=== PATIENT | female | born 1985 | race African-American/Black ===

== ENCOUNTER 2017-03-15 18:06 | Emergency (ER) | payer MEDICARE, MEDICAID ==
[~2017-03-15] VITALS: Ht 162.6 cm; Wt 65.0 kg
[2017-03-15 21:25] LABS: CLARITY URINE CLOUDY (CLEAR); COLOR URINE YELLOW (YELLOW); GLUCOSE URINE NEGATIVE (NEGATIVE); KETONES URINE NEGATIVE (NEGATIVE); LEUKOCYTE ESTERASE URINE 1+ (NEGATIVE); NITRITE URINE NEGATIVE (NEGATIVE); OCCULT BLOOD URINE NEGATIVE (NEGATIVE); PH URINE 6.5 (4.5-8.0); PROTEIN URINE TRACE (NEGATIVE); SPECIFIC GRAVITY URINE 1.028 (1.005-1.030)
[2017-03-15 21:30] LABS: UCG SCREEN NEGATIVE
[2017-03-15 21:55] VITALS: BP 119/69
== END 2017-03-15 22:25 | disposition home or self-care (01) ==
LOC: ER 18:06
DX: N39.0 Urinary tract infection, site not specified (principal); F17.200 Nicotine dependence, unspecified, uncomplicated
CPT/HCPCS: 81001; 81025; 99283; 99284

== ENCOUNTER 2017-09-17 16:44 | Emergency (ER) | payer MEDICARE, MEDICAID ==
[~2017-09-17] VITALS: Ht 154.9 cm; Wt 49.0 kg
[2017-09-17 17:46] VITALS: BP 122/74
[2017-09-17] MEDS ORDERED: CEFTRIAXONE SODIUM 250 MG/VIAL IM ONE (21:45)
[2017-09-17] MEDS ORDERED: AZITHROMYCIN 500 MG TABLET PO ONE (21:45)
[2017-09-18 10:28] LABS: HEPATITIS A AB IGM NEGATIVE (NEGATIVE)
[2017-09-18 10:39] LABS: HEPATITIS B CORE AB IGM REACTIVE; HEPATITIS B SURFACE ANTIGEN REACTIVE PEND CONFIR
[2017-09-19 14:20] LABS: HBSAG CONFIRMATION Positive (.); HBSAG SCREEN Confirm. indicated (Negative)
== END 2017-09-17 23:41 | disposition home or self-care (01) ==
LOC: ER 16:44
DX: A54.9 Gonococcal infection, unspecified (principal); N72 Inflammatory disease of cervix uteri; F17.200 Nicotine dependence, unspecified, uncomplicated; N89.8 Other specified noninflammatory disorders of vagina; Z11.3 Encounter for screening for infections with a predominantly sexual mode of transmission
CPT/HCPCS: 36415; 86592; 87186; 96372; 99284; J0696; 86705; 86709; 86803; 87340

== ENCOUNTER 2017-09-18 14:49 | Emergency (ER) | payer MEDICARE, MEDICAID ==
[~2017-09-18] VITALS: Ht 157.5 cm; Wt 49.0 kg
[2017-09-18 14:54] VITALS: BP 111/58
== END 2017-09-18 19:30 | disposition left against medical advice (07) ==
LOC: ER 16:00
DX: Z53.21 Procedure and treatment not carried out due to patient leaving prior to being seen by health care provider (principal)

== ENCOUNTER 2017-09-19 16:40 | Emergency (ER) | payer MEDICARE, MEDICAID ==
[~2017-09-19] VITALS: Ht 154.9 cm; Wt 50.0 kg
[2017-09-19 19:54] VITALS: BP 104/58
== END 2017-09-19 19:55 | disposition home or self-care (01) ==
LOC: ER 18:53
DX: B19.10 Unspecified viral hepatitis B without hepatic coma (principal); J45.909 Unspecified asthma, uncomplicated; F17.200 Nicotine dependence, unspecified, uncomplicated
CPT/HCPCS: 99281

== ENCOUNTER 2017-09-28 06:03 | Emergency (ER) | payer MEDICARE, MEDICAID ==
[~2017-09-28] VITALS: Ht 165.1 cm; Wt 59.0 kg
[2017-09-28] MEDS ORDERED: KETOROLAC 30MG/ML VIAL IV STA (07:05)
[2017-09-28] MEDS ORDERED: SODIUM CHLORIDE 0.9% 1,000 ML IV ONE (07:05)
[2017-09-28 07:42] LABS: HEMATOCRIT. 27.5 % (36.0-48.0); HEMOGLOBIN. 8.1 g/dL (12.0-16.0); MEAN CORPUSCULAR HEMOGLOBIN 19.3 pg (28.0-32.0); MEAN CORPUSCULAR VOLUME 65.2 fL (81.0-99.0); MEAN PLATELET VOLUME 9.1 fl (7.4-10.4); PLATELET 345 x1000/uL (130-400); RED BLOOD CELL COUNT 4.22 mill/uL (4.2-5.4); RED CELL DISTRIBUTION WIDTH 19.8 % (11.6-14.6)
[2017-09-28 07:45] LABS: CLARITY URINE CLOUDY (CLEAR); COLOR URINE YELLOW (YELLOW); KETONES URINE TRACE (NEGATIVE); LEUKOCYTE ESTERASE URINE 1+ (NEGATIVE); NITRITE URINE NEGATIVE (NEGATIVE); OCCULT BLOOD URINE NEGATIVE (NEGATIVE); PH URINE 5.5 (4.5-8.0); PROTEIN URINE TRACE (NEGATIVE); SPECIFIC GRAVITY URINE 1.024 (1.005-1.030)
[2017-09-28 07:46] LABS: CHLORIDE 105 mEq/L (98-107)
[2017-09-28 07:51] LABS: ETHANOL BLOOD < 10 mg/dL
[2017-09-28 07:54] LABS: CREATINE KINASE 74 IU/L (26-192)
[2017-09-28 07:59] LABS: *AMPHETAMINES SCREEN URINE NEGATIVE (NEGATIVE); *BARBITURATES SCREEN URINE NEGATIVE (NEGATIVE); *BENZODIAZEPINES SCREEN URINE NEGATIVE (NEGATIVE); CANNABINOID URINE SCREEN NEGATIVE (NEGATIVE); METHADONE URINE SCREEN NEGATIVE (NEGATIVE); OPIATES URINE SCREEN NEGATIVE (NEGATIVE); PHENCYCLIDINE URINE SCREEN NEGATIVE (NEGATIVE)
[2017-09-28 08:01] LABS: HCG SCREEN NEGATIVE
[2017-09-28 08:02] LABS: *COCAINE SCREEN URINE PRESUMTIVE POSITIVE (NEGATIVE)
[2017-09-28 08:19] LABS: PLATELET ESTIMATE NORMAL
[2017-09-28 11:48] VITALS: BP 122/59
== END 2017-09-28 12:15 | disposition home or self-care (01) ==
LOC: ER 06:07
DX: R53.1 Weakness (principal); R05 Cough; F14.10 Cocaine abuse, uncomplicated; F17.200 Nicotine dependence, unspecified, uncomplicated; R03.0 Elevated blood-pressure reading, without diagnosis of hypertension
CPT/HCPCS: 36415; 71045; 76705; 80053; 80305; 81003; 82550; 83690; 84703; 85025; 96361; 96374; 99285; G0482; J1885; J7030

== ENCOUNTER 2017-12-01 05:20 | Emergency (ER) | payer MEDICARE, MEDICAID ==
[~2017-12-01] VITALS: Ht 170.2 cm; Wt 63.0 kg
[2017-12-01 08:22] VITALS: BP 106/65
== END 2017-12-01 10:15 | disposition home or self-care (01) ==
LOC: ER 05:20
DX: N76.0 Acute vaginitis (principal); B96.89 Other specified bacterial agents as the cause of diseases classified elsewhere; Z86.19 Personal history of other infectious and parasitic diseases
CPT/HCPCS: 87210; 99283

== ENCOUNTER 2018-10-02 08:37 | Emergency (ER) | payer MEDICARE, MEDICAID ==
[~2018-10-02] VITALS: Ht 160 cm; Wt 50.0 kg
[2018-10-02] MEDS ORDERED: ONDANSETRON HCL 4MG/2ML INJ IV STA (12:37)
[2018-10-02] MEDS ORDERED: MORPHINE SULFATE 4 MG/ML CPJ (NOT FOR IM USE) IV STA (12:37)
[2018-10-02 12:54] LABS: BASOPHILS % 2.6 % (0.0-2.0); EOSINOPHILS % 0.3 % (0.0-5.0); HEMATOCRIT. 30.7 % (36.0-48.0); HEMOGLOBIN. 8.6 g/dL (12.0-16.0); MEAN CORPUSCULAR HEMOGLOBIN 18.8 pg (28.0-32.0); MEAN CORPUSCULAR VOLUME 67.3 fL (81.0-99.0); MEAN PLATELET VOLUME 7.6 fl (7.4-10.4); NEUTROPHILS % 74.1 % (40.0-76.0); PLATELET 590 x1000/uL (130-400); RED BLOOD CELL COUNT 4.56 mill/uL (4.2-5.4); RED CELL DISTRIBUTION WIDTH 20.7 % (11.6-14.6)
[2018-10-02 12:56] LABS: CHLORIDE 104 mEq/L (98-107)
[2018-10-02 12:58] LABS: INR 1.1; PROTHROMBIN TIME 11.3 sec (9.1-11.1)
[2018-10-02 13:01] LABS: ETHANOL BLOOD < 10 mg/dL
[2018-10-02 13:32] LABS: PLATELET ESTIMATE INCREASED
[2018-10-02 14:39] LABS: CLARITY URINE CLOUDY (CLEAR); COLOR URINE YELLOW (YELLOW); KETONES URINE 1+ (NEGATIVE); LEUKOCYTE ESTERASE URINE NEGATIVE (NEGATIVE); NITRITE URINE POSITIVE (NEGATIVE); OCCULT BLOOD URINE NEGATIVE (NEGATIVE); PROTEIN URINE TRACE (NEGATIVE); SPECIFIC GRAVITY URINE 1.027 (1.005-1.030)
[2018-10-02 14:48] LABS: *BARBITURATES SCREEN URINE NEGATIVE (NEGATIVE)
[2018-10-02 14:49] LABS: *AMPHETAMINES SCREEN URINE NEGATIVE (NEGATIVE); *BENZODIAZEPINES SCREEN URINE NEGATIVE (NEGATIVE); CANNABINOID URINE SCREEN PRESUMTIVE POSITIVE (NEGATIVE); METHADONE URINE SCREEN NEGATIVE (NEGATIVE); PHENCYCLIDINE URINE SCREEN NEGATIVE (NEGATIVE)
[2018-10-02 14:51] LABS: *COCAINE SCREEN URINE PRESUMTIVE POSITIVE (NEGATIVE); OPIATES URINE SCREEN PRESUMTIVE POSITIVE (NEGATIVE)
[2018-10-02] MEDS ORDERED: IOHEXOL-300 100 ML BOTTLE ONE (17:10)
[2018-10-02 18:17] VITALS: BP 112/54
[2018-10-05 06:11] LABS: CHLAMYDIA TRACHOMATIS NAA Negative (Negative); NEISSERIA GONORRHOEAE NAA Positive (Negative)
== END 2018-10-02 18:18 | disposition home or self-care (01) ==
LOC: ER 08:44
DX: N83.201 Unspecified ovarian cyst, right side (principal); A54.9 Gonococcal infection, unspecified
CPT/HCPCS: 36415; 71045; 74177; 76830; 76856; 80053; 80305; 80320; 81003; 81025; 83690; 85025; 85610; 87210; 87491; 87591; 96374; 96375; 99284; J2270; J2405; Q9967; G0480

== ENCOUNTER 2018-10-21 16:30 | Emergency (ER) | payer MEDICARE, MEDICAID ==
[~2018-10-21] VITALS: Ht 154.9 cm; Wt 45.6 kg
[2018-10-21 16:42] VITALS: BP 123/47
== END 2018-10-21 19:20 | disposition left against medical advice (07) ==
LOC: ER 16:30
DX: R10.9 Unspecified abdominal pain (principal); Z53.21 Procedure and treatment not carried out due to patient leaving prior to being seen by health care provider

== ENCOUNTER 2018-10-21 20:56 | Emergency (ER) | payer MEDICARE, MEDICAID ==
[~2018-10-21] VITALS: Ht 157.5 cm; Wt 46.0 kg
[2018-10-22] MEDS ORDERED: KETOROLAC 60MG/2ML VIAL IM ONE (03:00)
[2018-10-22 05:09] LABS: CLARITY URINE CLOUDY (CLEAR); COLOR URINE YELLOW (YELLOW); KETONES URINE TRACE (NEGATIVE); LEUKOCYTE ESTERASE URINE 1+ (NEGATIVE); NITRITE URINE NEGATIVE (NEGATIVE); OCCULT BLOOD URINE 3+ (NEGATIVE); PH URINE 5.5 (4.5-8.0); PROTEIN URINE TRACE (NEGATIVE); SPECIFIC GRAVITY URINE 1.039 (1.005-1.030)
[2018-10-22 07:05] VITALS: BP 112/66
== END 2018-10-22 07:06 | disposition home or self-care (01) ==
LOC: ER 20:56
DX: N39.0 Urinary tract infection, site not specified (principal); N83.202 Unspecified ovarian cyst, left side
CPT/HCPCS: 81003; 81025; 87077; 87086; 87186; 96372; 99283; J1885

== ENCOUNTER 2019-01-15 16:00 | Emergency (ER) | payer MEDICARE, MEDICAID ==
[~2019-01-15] VITALS: Ht 165.1 cm; Wt 44.9 kg
[2019-01-15 19:44] VITALS: BP 112/73
== END 2019-01-15 19:46 | disposition home or self-care (01) ==
LOC: ER 18:24
DX: J02.9 Acute pharyngitis, unspecified (principal); T19.2XXA Foreign body in vulva and vagina, initial encounter; X58.XXXA Exposure to other specified factors, initial encounter; Y93.89 Activity, other specified; Y92.89 Other specified places as the place of occurrence of the external cause
CPT/HCPCS: 99283

== ENCOUNTER 2019-02-23 19:34 | Emergency (ER) | payer MEDICARE, MEDICAID ==
[~2019-02-23] VITALS: Ht 157.5 cm; Wt 48.0 kg
[2019-02-23] MEDS ORDERED: IBUPROFEN 600MG TABLET PO ONE (22:45)
[2019-02-24 00:21] VITALS: BP 112/67
== END 2019-02-24 00:29 | disposition home or self-care (01) ==
LOC: ER 20:00
DX: S90.02XA Contusion of left ankle, initial encounter (principal); M79.672 Pain in left foot; J45.909 Unspecified asthma, uncomplicated; F17.200 Nicotine dependence, unspecified, uncomplicated; X58.XXXA Exposure to other specified factors, initial encounter; Y93.89 Activity, other specified; Y92.89 Other specified places as the place of occurrence of the external cause; Y99.8 Other external cause status
CPT/HCPCS: 73610; 73630; 81025; 99283

== ENCOUNTER 2021-09-25 13:49 | Emergency (ER) | payer MEDICARE, MEDICAID ==
[~2021-09-25] VITALS: Ht 165.1 cm; Wt 59.0 kg
[2021-09-25 13:53] VITALS: BP 124/76
[2021-09-25] MEDS ORDERED: IBUPROFEN 400MG TABLET PO ONE (14:15)
[2021-09-25] MEDS ORDERED: IBUP-2028 MT (15:05)
== END 2021-09-25 16:07 | disposition home or self-care (01) ==
LOC: ER 14:03
DX: S93.491A Sprain of other ligament of right ankle, initial encounter (principal); V78.4XXA Person boarding or alighting from bus injured in noncollision transport accident, initial encounter; Y93.01 Activity, walking, marching and hiking; Y92.488 Other paved roadways as the place of occurrence of the external cause; J45.909 Unspecified asthma, uncomplicated
CPT/HCPCS: 73610; 99283

== ENCOUNTER 2021-12-22 14:43 | Emergency (ER) | payer MEDICARE, MEDICAID ==
[~2021-12-22] VITALS: Ht 157.5 cm; Wt 50.0 kg
[~2021-12-22 14:43] MED LIST: IBUP-2028 MT
[2021-12-22] MEDS ORDERED: ACETAMINOPHEN 325MG TABLET PO ONE (15:00)
[2021-12-22] MEDS ORDERED: ACET-2708 MT (17:21)
[2021-12-22 17:30] VITALS: BP 106/53
== END 2021-12-22 17:30 | disposition home or self-care (01) ==
LOC: ER 14:43
DX: L02.31 Cutaneous abscess of buttock (principal); Z20.822 Contact with and (suspected) exposure to COVID-19; Z13.9 Encounter for screening, unspecified; Z59.00 Homelessness unspecified
CPT/HCPCS: 87426; 87804; 99283; C9803